=== PATIENT | female | born 1975 | race Caucasian/White ===

== ENCOUNTER 2020-02-12 10:16 | Inpatient (IN) ==
--- NOTE | 2020-01-29 10:41 | PAT Medication Instructions ---
Medication Instructions Date of Service January 29, 2020 Home Medications acetaminophen [Acetaminophen Extra Strength] 1,000 mg PO Q8H PRN albuterol sulfate 0.63 mg INHALATION Q4H PRN budesonide-formoterol [Symbicort] 2 puff INHALATION BID carisoprodol [Soma] 350 mg PO BID PRN cetirizine [Zyrtec] 10 mg PO HS docusate sodium [Stool Softener] 100 mg PO BID famotidine 20 mg PO HS fluticasone propionate [Flonase] 1 spray INTRANASAL BID PRN furosemide [Lasix] 20 mg PO DAILY PRN gabapentin 800 mg PO TID lorazepam 0.5 mg PO TID PRN meloxicam 15 mg PO HS montelukast [Singulair] 10 mg PO HS ondansetron HCl [Zofran] 4 mg PO Q8H PRN ASK your surgeon for instructions meloxicam 15 mg PO HS DO NOT take the morning of surgery carisoprodol [Soma] 350 mg PO BID PRN docusate sodium [Stool Softener] 100 mg PO BID furosemide [Lasix] 20 mg PO DAILY PRN Take morning of surgery With a small sip of water, OTHERWISE NOTHING TO EAT OR DRINK AFTER MIDNIGHT: acetaminophen [Acetaminophen Extra Strength] 1,000 mg PO Q8H PRN (okay to take up to 4 hours prior to surgery if needed) albuterol sulfate 0.63 mg INHALATION Q4H PRN (if needed) budesonide-formoterol [Symbicort] 2 puff INHALATION BID fluticasone propionate [Flonase] 1 spray INTRANASAL BID PRN (if needed) gabapentin 800 mg PO TID lorazepam 0.5 mg PO TID PRN (if needed) ondansetron HCl [Zofran] 4 mg PO Q8H PRN (if needed) Take evening before surgery acetaminophen [Acetaminophen Extra Strength] 1,000 mg PO Q8H PRN (if needed) albuterol sulfate 0.63 mg INHALATION Q4H PRN (if needed) budesonide-formoterol [Symbicort] 2 puff INHALATION BID carisoprodol [Soma] 350 mg PO BID PRN (if needed) cetirizine [Zyrtec] 10 mg PO HS docusate sodium [Stool Softener] 100 mg PO BID famotidine 20 mg PO HS fluticasone propionate [Flonase] 1 spray INTRANASAL BID PRN (if needed) gabapentin 800 mg PO TID lorazepam 0.5 mg PO TID PRN (if needed) montelukast [Singulair] 10 mg PO HS ondansetron HCl [Zofran] 4 mg PO Q8H PRN (if needed) Other Notes If you have any questions please call us at [phone] or [phone] or [phone] or [phone]
--- NOTE | 2020-01-29 13:57 | Anesthesiology Consultation ---
Date of Service January 29, 2020 Assessment & Plan (1) Encounter for pre-operative examination: Chart Review Chart Review: Pending: Refer to Additional Notes / Consult section (pending surgeon ordered PCP clearance and preop Covid testing ) and Patient seen in Pre Admission Testing Awaiting surgeon ordered PCP clearance (done 01/14) - Check test AM DOS Per PAT appt on 01/29/20, pt resides in [facility]. Travels to [facility]. No known Covid positive contacts or Covid related symptoms. Educated patient to follow up with surgeon's office regarding Covid testing. Educated on importance of self quarantining, social distancing and wearing mask in public both for the patient and household contacts. Teaching & Discussion Pre-Anesthesia Teaching/Discussion Notes: Instructed NPO after midnight before surgery,except medications with 15 cc of water. Medication instructions provided according to the [facility] guidelines. History Surgery Operation Date: 02/12/20 11:25 Proposed Procedures p L3-L4 Decompression Fusion, Spinal Cord Monitoring - Onesimo Barrios, Height/Weight Height: 5 ft 4 in Weight: 75.9 kg Allergies Allergy/AdvReac Type Severity Reaction Status Date / Time Cephalosporins Allergy Severe Anaphylaxis Verified 01/28/20 15:33 latex Allergy Mild UNSURE OF Verified 01/28/20 15:33 TRUE REACTION Penicillins Allergy Unknown Per Verified 01/29/20 14:02 allergy testing Medications Home Medications Medication Instructions Recorded Confirmed Last Taken acetaminophen [Acetaminophen Extra 1,000 mg PO Q8H PRN 01/28/20 01/28/20 Unknown Strength] albuterol sulfate 0.63 mg INHALATION Q4H PRN 01/28/20 01/28/20 Unknown budesonide-formoterol [Symbicort] 2 puff INHALATION BID 01/28/20 01/28/20 Unknown carisoprodol [Soma] 350 mg PO BID PRN 01/28/20 01/28/20 Unknown cetirizine [Zyrtec] 10 mg PO HS 01/28/20 01/28/20 Unknown docusate sodium [Stool Softener] 100 mg PO BID 01/28/20 01/28/20 Unknown famotidine 20 mg PO HS 01/28/20 01/28/20 Unknown fluticasone propionate [Flonase] 1 spray INTRANASAL BID PRN 01/28/20 01/28/20 Unknown furosemide [Lasix] 20 mg PO DAILY PRN 01/28/20 01/28/20 Unknown gabapentin 800 mg PO TID 01/28/20 01/28/20 Unknown lorazepam 0.5 mg PO TID PRN 01/28/20 01/28/20 Unknown meloxicam 15 mg PO HS 01/28/20 01/28/20 Unknown montelukast [Singulair] 10 mg PO HS 01/28/20 01/28/20 Unknown ondansetron HCl [Zofran] 4 mg PO Q8H PRN 01/28/20 01/28/20 Unknown Past Medical History Medical History Anxiety and depression Asthma Well controlled and stable Chronic obstructive pulmonary disease Well controlled and stable Environmental and seasonal allergies Controlled with OCT meds GERD (gastroesophageal reflux disease) Well controlled and stable with Pepcid Hx of basal cell carcinoma S/p removal Hx of cancer of lung SURGERY (NO CHEMO/NO RADIATION)- MAR 2017 (NO ISSUES SINCE) Migraine Neuropathy To right chest area - residual from previous lung surgery (intercostal muscle flap) Spinal stenosis Exercise / Class Metabolic Activity II 4-5 Yardwork/Stairs/Walk up hill (one flight of stairs - no chest pain or SOB ) Past Family History Family History Grandmother (Maternal) Family history of diabetes mellitus Past Surgical History Surgical History H/O laparoscopy X 2 History of bronchoscopy MULTIPLE TIMES History of section X 1 History of gynecological procedure D&E History of lobectomy of lung RT UPPER LOBE History of tonsillectomy and adenoidectomy History of tooth extraction Past Anesthesia History No Hx of Anesthesia Complications and No Family Hx of Anesthesia Complications History of PONV No Hx of Motion Sickness and History of PONV (occasional- more so when younger- no recent issues ) Social History Smoking Status: Current every day smoker tobacco type: cigarettes Smoking cigarettes per day: 10 CIG Do You Dip or Chew Tobacco: No Hx Alcohol Use: Yes Alcohol type: hard liquor alcohol intake frequency: holidays/special occasions only Hx Substance Use: No substance use type: does not use Review of Systems Patient denies chest pain, shortness of breath, dyspnea on exertion, cough, wheezing, palpitations. No hx of seizures, stroke, ME, apnea/snoring. No hx of blood clots or blood transfusions Physical Exam Vital Signs VITALS BP 104/67 P 73 TEMP 98.1 SP02 98% RESP 16 Constitutional no acute distress ENMT Mouth: no TMJ clicking Thyromental Distance: > or= 3.5 Finger Breadths (3.5) Mallampati Class: I Missing molar Neck neck extension not limited Respiratory normal respiratory effort; no respiratory distress Auscultation: lungs clear to auscultation bilaterally; no wheezes Cardiovascular Rate/Rhythm: regular rate and regular rhythm Heart Sounds: no murmur Vessels: no carotid bruit Musculoskeletal Spine: no pain with cervical ROM Neurologic moves all extremities Psychiatric Orientation: alert Testing Laboratory Results 01/29/20 14:17 01/29/20 14:17 PT 10.4 Seconds (9.0-12.0) 01/29/20 14:17 INR 1.0 (0.9-1.1) 01/29/20 14:17 APTT 28.5 Seconds (21.0-31.0) 01/29/20 14:17 Urine Color Yellow 01/29/20 14:17 Urine Appearance Clear (Clear) 01/29/20 14:17 Urine pH 6.5 (4.5-7.5) 01/29/20 14:17 Ur Specific [place] 1.019 (1.000-1.030) 01/29/20 14:17 Urine Protein Negative (Negative) 01/29/20 14:17 Urine Glucose (UA) Negative (Negative) 01/29/20 14:17 Urine Ketones Negative (Negative) 01/29/20 14:17 Urine Nitrite Negative (Negative) 01/29/20 14:17 Ur Leukocyte Esterase Negative (Negative) 01/29/20 14:17 Blood Type A Positive 01/29/20 14:17 Antibody Screen NEGATIVE 01/29/20 14:17 Electrocardiogram Date: 01/29/20 SR with short VA at 63 bpm. Otherwise normal EKG Chest X-Ray Date: 01/29/20 Findings: + NAD Postoperative findings within the right hemithorax are noted. There is a staple line as well as postsurgical findings within the right chest wall. Right lung volume loss is noted.
--- NOTE | 2020-01-29 14:54 | XRay Report ---
XR chest Pre-admission PA/Lat CLINICAL HISTORY: Preoperative evaluation. COMPARISON STUDY: No previous studies for comparison. FINDINGS: Postoperative findings within the right hemithorax are noted. There is a staple line as wel l as postsurgical findings within the right chest wall. Right lung volume loss is noted. There is no pneumothorax or pleural effusion. There is no consolidation. Cardiac size is normal. Mediastinal cont ours are normal. IMPRESSION: 1. No acute cardiopulmonary findings. 2. Postoperative findings within the right hemithorax, as described above. ACT 112: Negative or not required by law. Electronically signed by: Tanner Sr M.D. 01/29/2020 2:53 PM
[2020-01-29 15:21] LABS: Basophils # (auto) 0.04 K/uL (0-0.2); Basophils % (auto) 0.5 %; Eosinophils # (auto) 0.28 K/uL (0-0.5); Eosinophils % (auto) 3.7 %; Hemoglobin 13.4 g/dL (12.0-16.0); Immature Granulocytes # (auto) 0.01 K/uL (0.00-0.02); Immature Granulocytes % (auto) 0.1 %; Lymphocytes # (auto) 2.72 K/uL (1.2-3.4); Lymphocytes % (auto) 36.3 %; Mean Corpuscular Hemoglobin 30.2 pg (25-34); Mean Corpuscular Hgb Conc 32.7 g/dL (32-36); Mean Corpuscular Volume 92.3 fL (80-100); Mean Platelet Volume 11.3 fL (7.4-10.4); Monocytes # (auto) 0.54 K/uL (0.11-0.59); Monocytes % (auto) 7.2 %; Neutrophils % (auto) 52.2 %; Platelet Count 320 K/uL (130-400); RDW Coefficient of Variation 13.3 % (11.5-14.5); RDW Standard Deviation 44.5 fL (36.4-46.3); Red Blood Count 4.44 M/uL (4.2-5.4); White Blood Count 7.49 K/uL (4.8-10.8)
[2020-01-29 15:28] LABS: Appearance Urine Clear (Clear); Bilirubin Urine Negative (Negative); Blood Urine Negative (Negative); Color Urine Yellow; Glucose Urine UA Negative (Negative); Ketones Urine Negative (Negative); Leukocyte Esterase Urine Negative (Negative); Nitrite Urine Negative (Negative); Protein Urine Negative (Negative); Specific Gravity Urine 1.019 (1.000-1.030); Urobilinogen Urine Negative (Negative); pH Urine 6.5 (4.5-7.5)
[2020-01-29 15:29] LABS: BUN Creatinine Ratio 23.8 (10-20); Calcium 9.1 mg/dl (8.5-10.1); Est GFR (African American) 109.6; Est GFR (Non-African American) 94.6; Potassium 4.3 mmol/L (3.5-5.1)
[2020-01-29 15:39] LABS: Partial Thromboplastin Time 28.5 Seconds (21.0-31.0); Prothrombin Time 10.4 Seconds (9.0-12.0)
--- NOTE | 2020-01-29 16:35 | Electrocardiogram Report ---
Test Reason : Blood Pressure : / mmHG Vent. Rate : 063 BPM Atrial Rate : 063 BPM P-R Int : 102 ms QRS Dur : 084 ms QT Int : 406 ms P-R-T Axes : 062 086 070 degrees QTc Int : 415 ms Sinus rhythm with short MO Otherwise normal ECG No previous ECGs available Confirmed by Jonathan Berry ([id number]) on 01/29/2020 4:35:40 PM Referred By: Onesimo Barrios Confirmed By:Jonathan Berry
[~2020-02-12 10:16] MED LIST: CLINDAMYCIN 600 MG/54 ML BAG IV SCH; GABAPENTIN 900 MG DOSE PO SCH; LR 15ML/HR IV SCH; ceFAZolin 1000MG 1,000 MG/7.5 ML SYR IV SCH
[2020-02-12] MEDS ORDERED: ONDANSETRON INJ 2 MG/ML 2 ML VIAL IV PRN ×2 (10:31→15:05)
[2020-02-12] MEDS ORDERED: ePHEDrine sulfate 50 MG/ML AMP IV PRN (10:31)
[2020-02-12] MEDS ORDERED: ATROPINE SULFATE 0.1 MG/ML 10ML SYR IV PRN (10:31)
--- NOTE | 2020-02-12 10:52 | History & Physical Bridge Note ---
Date of Service February 12, 2020 History & Physical Bridge Note I have examined the patient, reviewed the History & Physical and in the interval since the performance of the History & Physical I have noted the following changes of clinical significance: no changes noted
--- NOTE | 2020-02-12 10:53 | History & Physical Report ---
Date of Service February 12, 2020 Assessment & Plan (1) Neurogenic claudication due to lumbar spinal stenosis: Admission and Anticipated Discharge Date Admission Date: L3-L4 decompression fusion History of Present Illness Chief Complaint: Back and leg pain Primary Care Provider: Bridger Guan MD This is a 44-year-old female who presents with chronic persistent back and leg pain after failing course of nonoperative care is here for surgical invention. Allergies Allergy/AdvReac Type Severity Reaction Status Date / Time Cephalosporins Allergy Severe Anaphylaxis Verified 02/12/20 10:43 latex Allergy Mild UNSURE OF Verified 02/12/20 10:43 TRUE REACTION Penicillins Allergy Unknown Per Verified 02/12/20 10:43 allergy testing Home Medications Home Medications Medication Instructions Recorded Confirmed Type acetaminophen [Acetaminophen Extra 1,000 mg PO Q8H PRN 01/28/20 02/12/20 History Strength] albuterol sulfate 0.63 mg INHALATION Q4H PRN 01/28/20 02/12/20 History budesonide-formoterol [Symbicort] 2 puff INHALATION BID 01/28/20 02/12/20 History carisoprodol [Soma] 350 mg PO BID PRN 01/28/20 02/12/20 History cetirizine [Zyrtec] 10 mg PO HS 01/28/20 02/12/20 History docusate sodium [Stool Softener] 100 mg PO BID 01/28/20 02/12/20 History famotidine 20 mg PO HS 01/28/20 02/12/20 History fluticasone propionate [Flonase] 1 spray INTRANASAL BID PRN 01/28/20 02/12/20 History furosemide [Lasix] 20 mg PO DAILY PRN 01/28/20 02/12/20 History gabapentin 800 mg PO TID 01/28/20 02/12/20 History lorazepam 0.5 mg PO TID PRN 01/28/20 02/12/20 History meloxicam 15 mg PO HS 01/28/20 02/12/20 History montelukast [Singulair] 10 mg PO HS 01/28/20 02/12/20 History ondansetron HCl [Zofran] 4 mg PO Q8H PRN 01/28/20 02/12/20 History Past Med/Surg History Medical History (Updated 02/12/20 @ 10:53 by Onesimo Barrios DO) Anxiety and depression Asthma Well controlled and stable Chronic obstructive pulmonary disease Well controlled and stable Environmental and seasonal allergies Controlled with OCT meds GERD (gastroesophageal reflux disease) Well controlled and stable with Pepcid Hx of basal cell carcinoma S/p removal Hx of cancer of lung SURGERY (NO CHEMO/NO RADIATION)- MAR 2017 (NO ISSUES SINCE) Migraine Neuropathy To right chest area - residual from previous lung surgery (intercostal muscle flap) Spinal stenosis Surgical History H/O laparoscopy X 2 History of bronchoscopy MULTIPLE TIMES History of section X 1 History of gynecological procedure D&E History of lobectomy of lung RT UPPER LOBE History of tonsillectomy and adenoidectomy History of tooth extraction Family History Grandmother (Maternal) Family history of diabetes mellitus Social History Smoking Status: Current every day smoker Cigarettes Per Day: 10 CIG; Second Hand Exposure: Yes (CURRENTLY AND A CHILD); Do You Dip or Chew Tobacco: No; Tobacco Cessation Education Requested by Patient: No Hx Alcohol Use: Yes Alcohol type: hard liquor Hx Substance Use: No Preferred Language: Mongolian Event Coordinator Required: No Beliefs That Will Affect Care: None Current Living Situation: Family Feels Safe at Home: Yes Safety Concerns: Feels Safe At This Time Assistive Devices: Cane, Glasses and Walker Physical Exam Physical Exam: Patient is alert and oriented Heart regular in rhythm Lungs clear to auscultation Results & Data ([facility]) Vital Signs (Past 12 Hours) Vital Signs Temp Pulse Resp BP Pulse Ox 02/12/20 10:34 36.7 C 87 16 111/81 98
[2020-02-12] MEDS ORDERED: BACITRACIN INJ 50,000 UNIT VIAL ONE (11:08)
[2020-02-12] MEDS ORDERED: BUPIVACAINE 0.5 % 5 MG/1 ML MPF 30ML VIAL ONE (11:08)
[2020-02-12] MEDS ORDERED: EPINEPHrine INJ 1 MG/ML AMP ONE (11:08)
[2020-02-12] MEDS ORDERED: fentaNYL citrate 100 MCG/2 ML VIAL ONE (11:14)
[2020-02-12] MEDS ORDERED: MIDAZOLAM HCL 1 MG/ML 2ML VIAL ONE (11:14)
[2020-02-12] MEDS ORDERED: ONDANSETRON INJ 2 MG/ML 2 ML VIAL ONE (12:03)
[2020-02-12] MEDS ORDERED: ePHEDrine sulfate 50 MG/ML SYR ONE (12:03)
[2020-02-12] MEDS ORDERED: FLOSEAL HEMOSTATIC MATRIX 10ML TOP ONE (12:03)
[2020-02-12] MEDS ORDERED: DEXAMETHASONE SOD INJ 4 MG/ML VIAL ONE (12:03)
[2020-02-12] MEDS ORDERED: LIDOCAINE HCL 2% 2 ML VIAL/AMP(20MG/ML) INFIL ONE (12:03)
[2020-02-12] MEDS ORDERED: ROCURONIUM BROMIDE 10 MG/ML 5 ML VIAL IV ONE (12:03)
[2020-02-12] MEDS ORDERED: PROPOFOL IV EMULSION 10 MG/ML 20 ML VIAL IV ONE (12:03)
--- NOTE | 2020-02-12 12:52 | Operative Report ---
Post Operative Report Pre & Post Diagnosis Operation Date: 02/12/20 11:25 Pre-Op Diagnosis: Intervertebral Disc Disorders with Radiculopathy Post-Op Diagnosis: Intervertebral Disc Disorders with Radiculopathy I identified the patient and participated in the time-out.: Yes Procedure Operation Date: 02/12/20 11:25 Actual Procedures #1 lumbar decompression with bilateral medial facetectomies and foraminotomies L3-L4. #2 posterior spinal fusion L3-4. #3 placement posterior instrumentation L3-4 per #4 interbody fusion L3-L4 #5 placement peek cage 9 x 26 mm at L3-L4. #6 placement locally harvested morselized autograft in the posterior lateral gutters. #7 placement infuse collagen sponge, master graft in the posterior gutters and ostial amp interbody space. Surgeon Onesimo Barrios DO Product Development Carpenter Vivian Elam Estimated Blood Loss 100 Findings Consistent with Post-Op Diagnosis Specimens None Indications This is a 44-year-old female presents above-mentioned diagnosis after failing extensive course of nonoperative care is here for the above-mentioned procedure. Description of Procedure Patient was met with identified informed consent obtained. Patient was then taken to the operative suite underwent intubation placed in a prone position on the Darci table on top of the Gagan frame. All bony prominences well-padded eyes inspected to ensure no external pressure placed upon up at this point the lumbar spine was prepped and draped in a normal sterile fashion. Sharp dissection with the assistance of Bovie cautery was performed down to and exposing the lamina and transverse processes of L3-L4 bilaterally. From caudal cephalad fashion complete laminectomy of L3 was performed including bilateral medial facetectomies and foraminotomies addressing severe spinal stenosis as well as addressing massive disc herniation on the left. After complete decompression pedicle screws were placed in L3 and L4 bilaterally with assistance of fluoroscopy and the appropriately sized nelda placed. By way of a transforaminal approach on the left complete discectomy of L3-L4 was performed endplates curetted to subcortical being bone and the 9 x 26 mm peek cage filled with osteobone graft tapped in position. The rods were then locked into final position bilaterally. The transverse processes of L3 and L4 were burred to subcortical bleeding bone. Infuse collagen sponge master graft local autograft was placed in the posterior gutters. 15 round SHAMEKA drain inserted. The incision was then closed with 1 Vicryl in the fascia 2-0 Vicryl subcutaneously and 4 Monocryl for final skin closure. Steri-Strip sterile dressings placed. Patient waken taken PACU stable condition. Please note spinal cord monitoring was utilized at the procedure no changes noted. Lastly Vivian Elam was present at the entire surgery involved the patient positioning complex portions of the surgery and final skin closure. I attest to the content of the Intraoperative Record and any orders documented therein. Any exceptions are noted below.
--- NOTE | 2020-02-12 12:56 | Fluoroscopy Report ---
FL lumbar spine 2-3V CLINICAL HISTORY: L3-L4 DECOMPRESSION AND FUSION COMPARISON STUDY: None. FLUOROSCOPY TIME: 17 seconds. FINDINGS: 2 fluoroscopic spot images of the lumbar spine demonstrate posterior decompression and fusi on at L3-L4 pedicle screws and rods. The hardware appears intact. IMPRESSION: Fluoroscopy provided for a L3-L4 posterior decompression and fusion ACT 112: Negative or not required by law. Electronically signed by: Mika Isabel M.D. 02/12/2020 12:55 PM
[2020-02-12] MEDS ORDERED: NEOSTIGMINE METHYLSULFATE 1 MG/ML 10ML VIAL ONE (13:15)
[2020-02-12] MEDS ORDERED: GLYCOPYRROLATE 0.2 MG/ML VIAL ONE (13:15)
[2020-02-12] MEDS ORDERED: PHENYLEPHRINE 100MCG/ML 5ML SYR ONE (13:15)
[2020-02-12] MEDS: fentaNYL citrate 100 MCG/2 ML VIAL IV PRN ×2 (13:20→13:25)
[2020-02-12] MEDS: HYDROmorphone INJ 1 MG/ML SYRINGE IV PRN ×7 (13:30→14:10)
--- NOTE | 2020-02-12 14:23 | Anesthesiology Progress Note ---
Date of Service February 12, 2020 Anesthesia Post Procedure Vital Signs Vital Signs: Temp Pulse Pulse Resp BP BP Pulse Ox 02/12/20 14:15 97.7 F 71 12 108/68 100 02/12/20 14:05 61 12 103/64 97 02/12/20 13:55 66 16 121/64 98 02/12/20 13:45 76 15 113/72 99 02/12/20 13:35 83 14 110/66 100 02/12/20 13:25 67 14 108/67 100 02/12/20 13:15 70 20 110/73 100 02/12/20 13:08 96.8 F L 88 16 109/66 100 02/12/20 10:34 98.1 F 87 16 111/81 98 Pain Intensity Lower Back: Pain Intensity: 6 Transfer of Care Handoff Completed per policy Notes Mental Status: alert / awake / arousable and participated in evaluation Patient Amnestic to Procedure: Yes Nausea / Vomiting: adequately controlled Pain: adequately controlled Airway Patency, RR, SpO2: stable & adequate BP & HR: stable & adequate Hydration State: stable & adequate Anesthetic Complications: no major complications apparent and Pt Satisfied with anesthetic care
[2020-02-12] MEDS ORDERED: NALOXONE HCL 0.4 MG/1 ML VIAL/CARP IV PRN (15:05)
[2020-02-12] MEDS ORDERED: ALUMINUM/MAGNESIUM SUSP 30 ML UDC PO PRN (15:05)
[2020-02-12] MEDS ORDERED: hydrOXYzine HCl 25 MG TAB PO PRN (15:05)
[2020-02-12] MEDS ORDERED: ONDANSETRON 4 MG OD TAB PO PRN (15:05)
[2020-02-12] MEDS ORDERED: NON-FORMULARY MEDICATION (Ondansetron Hcl 4 mg Tablet) PO PRN (15:05)
[2020-02-12] MEDS ORDERED: ACETAMINOPHEN 1,000 MG/100 ML VIAL IV PRN (15:05)
[2020-02-12] MEDS ORDERED: SOD PHOSPHATE/SOD BIPHOSPHATE ENEMA 132 ML BTL PR PRN (15:05)
[2020-02-12] MEDS ORDERED: DO NOT ADMINISTER FLU VACCINE PRN (15:05)
[2020-02-12] MEDS ORDERED: PROMETHAZINE HCL 12.5 MG in SODIUM CHLORIDE 0.9% 50 ML IV PRN (15:05)
[2020-02-12] MEDS ORDERED: FAMOTIDINE 20 MG TAB PO PRN (15:05)
[2020-02-12] MEDS ORDERED: DO NOT ADMINISTER PNEUMOCOCCAL VACCINE PRN (15:05)
[2020-02-12] MEDS ORDERED: LORazepam 0.5 MG/1 ML VIAL IV PRN (15:05)
[2020-02-12] MEDS ORDERED: ACETAMINOPHEN 500 MG TAB PO PRN (15:05)
[2020-02-12] MEDS ORDERED: METOCLOPRAMIDE HCL INJ 5 MG/ML 2 ML VIAL IV PRN (15:05)
[2020-02-12] MEDS ORDERED: MAGNESIUM HYDROXIDE SUSP 30 ML UDC PO PRN (15:05)
[2020-02-12] MEDS ORDERED: FLUTICASONE PROPIONATE NA SPR 16 GM BTL PRN (15:05)
[2020-02-12] MEDS ORDERED: diphenhydrAMINE Capsule 25 MG CAP PO PRN (15:05)
[2020-02-12] MEDS ORDERED: bisacodyL 10 MG SUPP PR PRN (15:05)
[2020-02-12] MEDS: CARISOPRODOL 350 MG TABLET PO PRN (15:49)
[2020-02-12] MEDS: KETOROLAC TROMETHAMINE 15 MG/ML VIAL IV SCH ×2 (15:49→21:19)
[2020-02-12] MEDS: LACTATED RINGER'S 1,000 ML IV SCH (15:50)
[2020-02-12] MEDS: GABAPENTIN 800 MG TAB PO SCH ×2 (17:03→21:19)
[2020-02-12] MEDS: CLINDAMYCIN 600 MG in DEXTROSE 5% 50 ML IV SCH (19:30)
[2020-02-12] MEDS: oxyCODONE HCL IR 5 MG TAB (IMMEDIATE RELEASE) PO PRN (19:35)
[2020-02-12] MEDS: MONTELUKAST SODIUM 10 MG TABLET PO SCH (21:16)
[2020-02-12] MEDS: CETIRIZINE HCL 10 MG TABLET PO SCH (21:17)
[2020-02-12] MEDS: LORazepam 0.5 MG TAB PO PRN (21:18)
[2020-02-12] MEDS: FAMOTIDINE 20 MG TAB PO SCH (21:19)
[2020-02-12] MEDS: DOCUSATE SODIUM/SENNA 50/8.6MG TAB PO SCH (21:19)
[2020-02-12] MEDS: DOCUSATE SODIUM 100 MG CAP PO SCH (21:19)
[2020-02-13] MEDS: oxyCODONE HCL IR 5 MG TAB (IMMEDIATE RELEASE) PO PRN ×5 (00:21→22:07)
[2020-02-13] MEDS: LACTATED RINGER'S 1,000 ML IV SCH (00:21)
[2020-02-13] MEDS: KETOROLAC TROMETHAMINE 15 MG/ML VIAL IV SCH ×2 (03:08→10:00)
[2020-02-13] MEDS: CLINDAMYCIN 600 MG in DEXTROSE 5% 50 ML IV SCH (03:08)
[2020-02-13] MEDS: POLYETHYLENE (MIRALAX) 17 GM PACK PO SCH ×3 (05:45→18:01)
[2020-02-13 06:33] LABS: Basophils # (auto) 0.02 K/uL (0-0.2); Basophils % (auto) 0.1 %; Eosinophils # (auto) 0.09 K/uL (0-0.5); Eosinophils % (auto) 0.6 %; Hematocrit (blood only) 33.4 % (37-47); Immature Granulocytes # (auto) 0.03 K/uL (0.00-0.02); Immature Granulocytes % (auto) 0.2 %; Lymphocytes # (auto) 3.61 K/uL (1.2-3.4); Lymphocytes % (auto) 22.8 %; Mean Corpuscular Hemoglobin 30.6 pg (25-34); Mean Corpuscular Hgb Conc 32.9 g/dL (32-36); Mean Corpuscular Volume 92.8 fL (80-100); Mean Platelet Volume 11.1 fL (7.4-10.4); Monocytes # (auto) 1.34 K/uL (0.11-0.59); Monocytes % (auto) 8.5 %; Neutrophils # (auto) 10.73 K/uL (1.4-6.5); Neutrophils % (auto) 67.8 %; Platelet Count 228 K/uL (130-400); RDW Coefficient of Variation 12.7 % (11.5-14.5); RDW Standard Deviation 43.3 fL (36.4-46.3); White Blood Count 15.82 K/uL (4.8-10.8)
[2020-02-13 07:05] LABS: BUN Creatinine Ratio 18.2 (10-20); Calcium 7.9 mg/dl (8.5-10.1); Creatinine Clr Calc Pharmacy 103.7 ml/min; Est GFR (African American) 123.6; Est GFR (Non-African American) 106.6; Potassium 3.4 mmol/L (3.5-5.1)
[2020-02-13] MEDS: FLUTICASONE/VILANTEROL 200/25MCG 14 PUFFS/INHALER INH SCH (08:42)
[2020-02-13] MEDS: DOCUSATE SODIUM 100 MG CAP PO SCH ×2 (08:42→21:29)
[2020-02-13] MEDS: GABAPENTIN 800 MG TAB PO SCH ×3 (08:42→21:30)
--- NOTE | 2020-02-13 11:51 | Orthopedic Progress Note ---
Date of Service February 13, 2020 Assessment & Plan (1) Neurogenic claudication due to lumbar spinal stenosis: Admission and Anticipated Discharge Date Admission Date: February 12, 2020 At this time continue physical therapy monitor SHAMEKA output anticipate possible d ischarge home tomorrow. Subjective Back pain controlled leg pain improved Physical Exam Physical Exam: Patient is good strength testing appears comfortable. Results & Data ([facility]) Vital Signs (Past 12 Hours) Vital Signs Temp Pulse Resp BP Pulse Ox 02/13/20 07:17 36.7 C 66 16 90/56 L 97 02/13/20 05:49 92/59 L 02/13/20 04:30 74 95/59 L 02/13/20 03:11 36.7 C 61 14 91/55 L 97 02/13/20 00:20 74 14 99/64 L
[2020-02-13] MEDS: CARISOPRODOL 350 MG TABLET PO PRN (16:33)
[2020-02-13] MEDS: NICOTINE 21 MG/24 HR TDSY TD SCH (19:07)
[2020-02-13] MEDS: traMADol HCL 50 MG TABLET PO PRN (19:09)
[2020-02-13] MEDS: LORazepam 0.5 MG TAB PO PRN (19:19)
[2020-02-13] MEDS: DOCUSATE SODIUM/SENNA 50/8.6MG TAB PO SCH (21:29)
[2020-02-13] MEDS: FAMOTIDINE 20 MG TAB PO SCH (21:29)
[2020-02-13] MEDS: MONTELUKAST SODIUM 10 MG TABLET PO SCH (21:30)
[2020-02-13] MEDS: CETIRIZINE HCL 10 MG TABLET PO SCH (21:30)
[2020-02-14] MEDS: POLYETHYLENE (MIRALAX) 17 GM PACK PO SCH ×5 (00:07→23:30)
[2020-02-14] MEDS: FAMOTIDINE 20 MG TAB PO SCH ×2 (00:38→20:46)
[2020-02-14] MEDS: traMADol HCL 50 MG TABLET PO PRN ×2 (00:38→15:29)
[2020-02-14] MEDS: oxyCODONE HCL IR 5 MG TAB (IMMEDIATE RELEASE) PO PRN ×5 (04:15→23:30)
--- NOTE | 2020-02-14 08:29 | Orthopedic Progress Note ---
Date of Service February 14, 2020 Assessment & Plan (1) Neurogenic claudication due to lumbar spinal stenosis: Admission and Anticipated Discharge Date Admission Date: February 12, 2020 Patient struggling with back spasms. She still has improvement of her leg symp toms. We'll continue with physical therapy today anticipate discharge home tomorrow. Subjective Back pain significant this morning. Leg symptoms improved. Physical Exam Physical Exam: Patient is good strength testing. Results & Data ([facility]) Vital Signs (Past 12 Hours) Vital Signs Temp Pulse Resp BP Pulse Ox 02/14/20 07:35 36.6 C 60 16 87/57 L 96 02/13/20 23:44 36.6 C 81 15 96/61 L 96
[2020-02-14] MEDS: NICOTINE 21 MG/24 HR TDSY TD SCH (08:50)
[2020-02-14] MEDS: GABAPENTIN 800 MG TAB PO SCH ×3 (08:56→20:45)
[2020-02-14] MEDS: DOCUSATE SODIUM 100 MG CAP PO SCH ×2 (08:56→20:44)
[2020-02-14] MEDS: FLUTICASONE/VILANTEROL 200/25MCG 14 PUFFS/INHALER INH SCH (08:56)
[2020-02-14] MEDS: CYCLOBENZAPRINE HCL 10 MG TAB PO PRN ×2 (10:30→21:01)
[2020-02-14] MEDS: CETIRIZINE HCL 10 MG TABLET PO SCH (20:46)
[2020-02-14] MEDS: MONTELUKAST SODIUM 10 MG TABLET PO SCH (20:46)
[2020-02-14] MEDS: DOCUSATE SODIUM/SENNA 50/8.6MG TAB PO SCH (20:46)
[2020-02-14] MEDS: CARISOPRODOL 350 MG TABLET PO PRN (23:30)
[2020-02-15] MEDS: CYCLOBENZAPRINE HCL 10 MG TAB PO PRN ×2 (04:11→12:52)
[2020-02-15] MEDS: oxyCODONE HCL IR 5 MG TAB (IMMEDIATE RELEASE) PO PRN ×2 (04:11→12:51)
[2020-02-15] MEDS: POLYETHYLENE (MIRALAX) 17 GM PACK PO SCH ×2 (04:30→13:00)
--- NOTE | 2020-02-15 08:59 | Discharge Summary ---
Date of Service February 15, 2020 Admission HPI Per Admitting Provider This is a 44-year-old female who presents with chronic persistent back and leg pain after failing course of nonoperative care is here for surgical invention. Principal Diagnosis Lumbar spinal stenosis with neurogenic claudication Discharge Data Allergies Allergy/AdvReac Type Severity Reaction Status Date / Time Cephalosporins Allergy Severe Anaphylaxis Verified 02/12/20 10:43 latex Allergy Mild UNSURE OF Verified 02/12/20 10:43 TRUE REACTION Penicillins Allergy Unknown Per Verified 02/12/20 10:43 allergy testing Consultations 02/12/20 15:05 Consult Case Management - Discharge Planning Routine Procedures Performed Operation Date: 02/12/20 11:25 Actual Procedures p L3-L4 Decompression Fusion, Spinal Cord Monitoring(Not Applicable) - Onesimo Barrios DO Ordered Studies 02/12/20 11:25 FL fluoroscopy <1hr Routine FL lumbar spine 2-3V Routine Hospital Course (1) Neurogenic claudication due to lumbar spinal stenosis: Patient went lumbar decompression fusion tolerated this well was taken to orthopedic floor possibly. Postop day 1 she was up and ambulating progressed to postop day #2 on postop day #3 pain was well controlled SHAMEKA drain decreased appropriately. Strength intact. Subsequent discharge home. Discharge orders and instructions found in the chart for further review. Total Time Total Time Spent Total Time Spent (In Minutes): 20 minutes Discharge Plan Discharge Items Patient Disposition: Home - Self-Care Reason For Visit: Intervertebral Disc Disorders with Radiculopathy Discharge Diagnosis: Lumbar spinal stenosis with radiculopathy Activity: As commented below Non-emergency contact: Primary Care Provider Call non-emergency contact if: you have any medication questions Follow-up/Referrals: Bridger Guan MD [Primary Care Provider] - Diet: Regular Addtl Attending Provider Instructions: ACTIVITY RECOMMENDATIONS: SELF CARE INSTRUCTIONS AFTER THORACIC/LUMBAR FUSIONS 1. You may walk to your tolerance. It is good exercise for your legs and back. Expect some back and intermittent leg aches and pains. 2. You may perform "counter-top" level activities (make a sandwich, fatoumata with a project, etc.). 3. No bending or lifting of more than 10 pounds or back twisting of any nature (roll like a log when turning in bed). 4. You may ride in a car for 20-30 minutes at a time. No driving until after your first visit with your doctor. 5. Frequent changes of position and restricting sitting to 30 minutes at a time will help limit the amount of back spasms and stiffness you may experience. 6. You may discontinue the use of ambulatory aids (cane, crutches, etc.) once your strength and confidence allow. 7. You may dishwashing machine operator the shower and let water strike your incision when you arrive home at least once daily. Do not take a tub bath, sit in a hot tub or go into a swimming pool until after your first recheck in the office. SPECIAL CARE INSTRUCTIONS: VERY IMPORTANT TO READ AND REVIEW A. Your surgical incision has been closed with a cosmetic suture under the skin that will dissolve in about 6 weeks. In 14 days, you can use a pair of clean scissors and cut the suture that is left outside of the skin at the ends of your incision. 1. The small skin tapes can be removed 7 days after surgery if they have not fallen off by that point. 2. You may keep the wound open to air as much as possible to promote healing after post-op day number 5 unless told otherwise by your doctor. 3. If you think the wound looks like it is becoming infected (redness or worsening drainage) and/or you are experiencing fever, chill or worsening back pain and muscle spasms, contact the office so that we may evaluate you as soon as possible. B. Complications are uncommon, but please contact us if you have any signs or symptoms of: 1. wound infection (fever higher than 102.5 degrees F, redness, separation of wound, drainage, or increasing pain from the incision) 2. blood clots in legs (pain, swelling, redness and warmth in legs) 3. urinary tract infection (fever higher than 102.5 degrees F, burning upon urination or increased frequency of urination) 4. nerve problems (inability to walk on your toes or heels, numbness, loss of bowel or bladder control) 5. any other symptoms that concern you C. Please call the office at if you have any concerns or questions about your operation or recovery. D. No smoking! Smoking drastically decreases the chance of a solid fusion. E. Do not take any anti-inflammatory medications (Indocin, Advil, Motrin, Aspirin, Naprosyn, etc.) as these may inhibit the chance of a solid fusion. Tyl enol is okay to take for pain. MANAGING PAIN AFTER SPINAL SURGERY 1. Narcotic medication is intended for short-term use and will be provided for surgical pain. Surgical pain usually lasts for a period of 4-6 weeks. Narcotic medication includes Percocet, Vicodin, Darvocet, Tylenol #3 or Lortab. 2. Longer-term pain is more appropriately treated with non-narcotic medication such as Tylenol ES. 3. Muscle spasm is not appropriately treated with narcotics. Muscle relaxers such as Soma, Flexeril or Skelaxin can be used along with Tylenol ES. 4. Remember that we all live with some "aches and pains". This is not unusual or uncommon after an injury or as we get older. a. Back pain is expected and may include muscle spasms for 4 to 6 weeks after surgery. The pain should gradually improve. If the pain worsens for no apparent reason, please contact the office. b. Intermittent leg pain may also be experienced and should not be concerned about unless it worsens for no apparent reason. If so, please contact the office. 5. We will provide appropriate medication within the normal guidelines of their prescribed use. We will also be very cautious and aware of potential abuse and extended duration of patients' medication needs. a. Pain medications are for your comfort and to assist with sleep and rest so that the tissue can heal. They are not provided in order to return to normal activity and should not be used through the day. To do so or worsening pain at night can result from ongoing tissue damage and development of tolerance to the prescribed medicine. 6. Please allow 2-3 days to process refills. Prescriptions will not be mailed but must be picked up at the office. FOLLOW UP VISIT: Keep your scheduled follow-up appointment. Any questions, please call the office at . Pending Studies at Discharge: No Stand-Alone Forms: [employer], Smoking Cessation Medications and DC Order Prescriptions: New oxycodone 5 mg tablet 5 mg PO Q6H PRN (Reason: pain, severe) Qty: 30 RF: 0 tramadol 50 mg tablet 50 mg PO Q6H PRN (Reason: pain, moderate) Qty: 30 RF: 0 cyclobenzaprine 10 mg Tablet 10 mg PO Q8 PRN (Reason: muscle spasm) Qty: 14 RF: 0 Continued carisoprodol [Soma] 350 mg Tablet 350 mg PO BID PRN (Reason: Pain) RF: 0 cetirizine [Zyrtec] 10 mg Tablet 10 mg PO HS RF: 0 ondansetron HCl [Zofran] 4 mg Tablet 4 mg PO Q8H PRN (Reason: Nausea) RF: 0 acetaminophen [Acetaminophen Extra Strength] 500 mg Tablet 1,000 mg PO Q8H PRN (Reason: Pain) RF: 0 famotidine 20 mg Tablet 20 mg PO HS RF: 0 lorazepam 0.5 mg Tablet 0.5 mg PO TID PRN (Reason: Anxiety) RF: 0 gabapentin 800 mg Tablet 800 mg PO TID RF: 0 montelukast [Singulair] 10 mg Tablet 10 mg PO HS RF: 0 furosemide [Lasix] 20 mg Tablet 20 mg PO DAILY PRN (Reason: LEG SWELLING) RF: 0 fluticasone propionate [Flonase] 50 mcg/actuation [place],Suspension 1 spray INTRANASAL BID PRN (Reason: Nasal Congestion) RF: 0 budesonide-formoterol [Symbicort] 160-4.5 mcg/actuation Hfa Aerosol Inhaler 2 puff INHALATION BID RF: 0 docusate sodium [Stool Softener] 100 mg Tablet 100 mg PO BID RF: 0 albuterol sulfate 0.63 mg/3 mL Solution For Nebulization 0.63 mg INHALATION Q4H PRN (Reason: SHORT OF BREATH) RF: 0 Discontinued meloxicam 15 mg Tablet 15 mg PO HS RF: 0 Discharge Orders: Discharge Order (Routine); Ordered 02/15/20 Ordered By: Onesimo Barrios Admission Data Admit Date/Time: 02/12/20 15:05 Attending Provider: Onesimo Barrios Admit Provider: Onesimo Barrios Primary Care Provider: Bridger Guan
[2020-02-15] MEDS: NICOTINE 21 MG/24 HR TDSY TD SCH (10:10)
[2020-02-15] MEDS: GABAPENTIN 800 MG TAB PO SCH ×2 (10:11→13:41)
[2020-02-15] MEDS: DOCUSATE SODIUM 100 MG CAP PO SCH (10:11)
[2020-02-15] MEDS: FLUTICASONE/VILANTEROL 200/25MCG 14 PUFFS/INHALER INH SCH (10:11)
[2020-02-15] MEDS: traMADol HCL 50 MG TABLET PO PRN (13:39)
== END 2020-02-15 14:26 | disposition home or self-care (01) | DRG 455 ==
LOC: ASU 10:16 → 3E 15:05